=== PATIENT | female | born 1930 | race Caucasian/White ===

== ENCOUNTER 2019-08-29 10:18 | Emergency (ER) | payer MEDICARE, BC ==
[~2019-08-29] VITALS: Ht 162.6 cm; Wt 68.5 kg
[~2019-08-29 10:18] MED LIST: B12INJ PO; CALCIUM 500 +1 EAC5 PO; CO Q-10100 MG PO; COZAAR 50 MG TA50 M2 PO; ETODOLAC500 MG PO; FISH OIL + D31 EACH PO; FOSAMAX 70 MG T70 M1 PO; GLUCOSAMINE &1 EAC1 PO; IMODIUM ADVANC1 EAC1 PO; LISINOPRIL20 MG; MULTIVITAMINS1 EAC7 PO; NEURONTIN 300300 M1 PO; NORCO 5-325 TA1 EACH PO; SIMVASTATIN40 MG; VITAMINC500 PO; ZOFRAN ODT4 MG PO
[2019-08-29] MEDS ORDERED: PEPCID20 MG PO (10:36)
[2019-08-29] MEDS ORDERED: MELATONIN5 MG SUBLING (10:36)
[2019-08-29] MEDS ORDERED: HYDROCHLOROTHIA25 M2 PO (10:37)
[2019-08-29] MEDS ORDERED: EFFER-K 10 MEQ10 ME1 PO (10:38)
[2019-08-29 10:54] LABS: ABSOLUTE EOSINOPHILS 0.1 thou/uL (0.0-0.7); ABSOLUTE LYMPHOCYTES 0.9 thou/uL (0.8-5.3); ABSOLUTE MONOCYTES 0.5 thou/uL (0.0-1.2); ABSOLUTE NEUTROPHILS 5.8 thou/uL (1.6-8.1); BASOPHILS 0.6 %; EOSINOPHILS 0.8 %; HEMATOCRIT 38.5 % (37.0-47.0); HEMOGLOBIN 13.7 gm/dL (12.0-15.0); LYMPHOCYTES 11.8 %; MCH 34.2 pg (26.0-34.0); MCHC 35.6 g/dL (28.0-37.0); MONOCYTES 7.1 %; MPV 7.7 fl. (7.2-11.1); NUCLEATED RBCS 0 /100WBC; PLATELET COUNT* 208 thou/uL (150-400); POLYS 79.7 %; RDW-CV 13.4 % (10.5-14.5); WBC 7.3 thou/uL (4.0-11.0)
[2019-08-29 11:03] LABS: CALCIUM 8.9 mg/dL (8.5-10.1); POTASSIUM 3.3 mmol/L (3.5-5.1)
[2019-08-29 11:14] LABS: ALBUMIN 3.5 g/dL (3.4-5.0); MAGNESIUM 1.9 mg/dL (1.8-2.4); TOTAL BILIRUBIN 0.6 mg/dL (<0.1-1.0); TOTAL PROTEIN 6.4 g/dL (6.4-8.2)
[2019-08-29 14:17] VITALS: BP 143/99
--- NOTE | 2019-08-29 15:19 | EKG ---
[place] [address] ELECTROCARDIOGRAM REPORT Name: SUSIE PATEL Room: [facility]#: [id number] Admission: 08/29/19 Attend Phys: Discharge: 08/29/19 Date of : 34 Date of Service: 08/29/19 1026 Report #: [id number] THIS REPORT FOR: //name// [facility] ED Test Date: 2019-08-29 Test Time: 10:26:32 Pat Name: SUSIE PATEL Department: Room: Gender: F [employer] Teacher: : 1930 Requested By: Miller Wolf Order Number: [id number] MD: James Maria Measurements Intervals [place] Rate: 85 P: 74 VT: 172 QRS: 47 QRSD: 89 T: 46 QT: 381 QTc: 453 Interpretive Statements Sinus rhythm No previous ECG available for comparison Electronically Signed On 08-29-2019 15:18:02 CDT by James Maria [email or web address] <ELECTRONICALLY SIGNED> By: James Maria MD, [facility] 08/29/19 1518 1026 1026 James Maria MD, FACC /EPI
--- NOTE | 2019-08-29 15:25 | EKG ---
[place] [address] ELECTROCARDIOGRAM REPORT Name: SUSIE PATEL Sj Room: [facility]#: [id number] Admission: 08/29/19 Attend Phys: Discharge: 08/29/19 Date of : 34 Date of Service: 08/29/19 1302 Report #: [id number] THIS REPORT FOR: //name// [facility] ED Test Date: 2019-08-29 Test Time: 13:02:21 Pat Name: SUSIE PATEL Department: Room: Gender: F Net Programmer: CCD : 1930 Requested By: Miller Wolf Order Number: [id number] MD: James Maria Measurements Intervals [place] Rate: 83 P: 59 ME: 171 QRS: 25 QRSD: 88 T: 39 QT: 397 QTc: 467 Interpretive Statements Sinus rhythm Electronically Signed On 08-29-2019 15:23:50 CDT by James Maria [email or web address] <ELECTRONICALLY SIGNED> By: James Maria MD, [facility] 08/29/19 1523 1302 1302 James Maria MD, FACC /EPI
--- NOTE | 2019-08-29 16:41 | CON ---
[address] [address] CONSULTATION Name: [facility]USIE PATEL [id number] Admission: 08/29/19 Attend Phys: Discharge: 08/29/19 Date of : 34 Report #: [id number] THIS REPORT FOR: //name// cc: Umair Bello MD, Richard MD ~ THIS REPORT FOR: //name// CC: Miller Bello MD DATE OF SERVICE: 08/29/2019 CARDIOLOGY CONSULTATION HISTORY OF PRESENT ILLNESS: The patient is an 89-year-old single white female who I was asked to see in the Emergency Room after she complained of back pain. The patient has no previous history of heart disease. She has had chronic back pain for years. She is going to the pain clinic in the past. However, today, the pain was in her back and went on to her sides. She denies any shortness of breath, diaphoresis, or nausea. There is no pain in her arms, and her arms felt numb. She denied any recent fall. She denies any recent exertional dyspnea, palpitations, syncope, or peripheral edema. She came to the Emergency Room and was admitted for further evaluation and treatment. PAST MEDICAL HISTORY: She has had previous cholecystectomy, tonsillectomy, hypertension, and hyperlipidemia. No diabetes. MEDICATIONS: Include Neurontin, hydrochlorothiazide, losartan, and simvastatin. ALLERGIES: SHE HAS ALLERGY TO PENICILLIN. FAMILY HISTORY: Her sister had a heart attack. SOCIAL HISTORY: She is . She lives in [place]. No smoking or alcohol abuse. REVIEW OF SYSTEMS: She has had no history of stroke or asthma. She had a peptic ulcer years ago. No liver disease. No kidney disease. No cancer. No psychiatric illness. No chronic skin. She does wear glasses. PHYSICAL EXAMINATION: GENERAL: Revealed an elderly female, lying in bed. She appeared in no distress. VITAL SIGNS: Blood pressure 140/68, pulse is 80, and she is afebrile. HEENT: She is anicteric. Conjunctivae are pink. [place] [address] CONSULTATION Name: SUSIE PATEL Room: [facility]#: [id number] Admission: 08/29/19 Attend Phys: Discharge: 08/29/19 Date of : 34 Report #: [id number] NECK: Neck veins are nondistended. No carotid bruits. CHEST: Clear to auscultation. CARDIOVASCULAR: Regular rate and rhythm. ABDOMEN: Soft. EXTREMITIES: She had no edema. Dorsalis pedis pulse 2+. SKIN: Warm and dry. NEUROLOGIC: Nonfocal. RADIOLOGICAL DATA: ECG showed a sinus rhythm with no ST or T-wave change. Her workup in the Emergency Room today, she had portable chest x-ray that showed scarring in both lungs and normal heart size. LABORATORY WORK: Sodium 136, potassium 3.3, and creatinine 1.0. Liver function studies were normal. Troponin 0.06. Hemoglobin 13.7. IMPRESSION AND RECOMMENDATIONS: 1. Back pain, suspect noncardiac. 2. Hypertension. The patient is on an ARB. 3. Hyperlipidemia. The patient is on a statin drug. 4. Chronic back pain. The patient has gone to the pain clinic in the past. <ELECTRONICALLY SIGNED> By: James Maria MD, FACC 08/29/19 1641 1336 [id number] Maria MD, FACC /nt
== END 2019-08-29 14:17 | disposition home or self-care (01) ==
LOC: M.ERS 10:18
PROVIDERS: Emergency Medicine Emergency Medical Services
DX: R07.89 Other chest pain (principal); I10 Essential (primary) hypertension; E78.00 Pure hypercholesterolemia, unspecified; Z90.89 Acquired absence of other organs; Z90.49 Acquired absence of other specified parts of digestive tract; Z88.0 Allergy status to penicillin